=== PATIENT | female | born 1945 | race Caucasian/White ===

== ENCOUNTER 2019-11-26 12:49 | Emergency (ER) | payer OTHER, MEDICAID ==
[~2019-11-26] VITALS: Ht 154.9 cm; Wt 48.1 kg
--- NOTE | 2019-11-26 12:53 | NUR ---
Placed in room 6 . Placed on property assessment monitor, blood pressure machine and pulse oximeter. To gown for exam. Side rails up. Report given to BIANCA Amin.
[2019-11-26 12:54] VITALS: BP_SYST 171
--- NOTE | 2019-11-26 12:57 | NUR ---
ER at bedside examining patient.
[2019-11-26] MEDS ORDERED: ALPRAZolam 0.25 MG TABLET PO ONE (13:00)
--- NOTE | 2019-11-26 13:13 | NUR ---
MEDICATED PT WITH 1 MG TABLET XANAX ORDERED.
[2019-11-26 14:46] VITALS: BP_SYST 135
--- NOTE | 2019-11-26 14:46 | NUR ---
Patient given written and verbal discharge instructions and verbalizes understanding. ER MD discussed with patient the results and treatment provided. Patient in stable condition. ID arm band removed. IV catheter removed intact and dressing applied, no active bleeding. Rx of xanax given. Patient educated on pain management and to follow up with PMD. Pain Scale 0/10. Opportunity for questions provided and answered. Medication side effect fact sheet provided.
--- NOTE | 2019-11-26 15:00 | NUR ---
Pt requested taxi home stated she would be able to pay with her own money. When taxi arrived nurse was unable to locate patient for taxi ride home.
== END 2019-11-26 14:46 | disposition home or self-care (01) ==
LOC: SED 12:49
DX: F13.239 Sedative, hypnotic or anxiolytic dependence with withdrawal, unspecified (principal)
CPT/HCPCS: 99283

== ENCOUNTER 2021-05-27 15:22 | Inpatient (IN) | payer OTHER, MEDICAID ==
[~2021-05-27] VITALS: Ht 152.4 cm; Wt 56.2 kg
[2021-05-27 15:33] VITALS: BP_SYST 189
--- NOTE | 2021-05-27 15:33 | NUR ---
Patient to ER bed 1 to gown for evaluation. Side rails up. Report given to [place].
--- NOTE | 2021-05-27 15:40 | NUR ---
ER at bedside examining patient.
[2021-05-27] MEDS ORDERED: IPRATROPIUM/ALBUTEROL SULFATE 3 ML AMPUL.NEB (DUONEB) INH ONE (15:45)
--- NOTE | 2021-05-27 15:45 | NUR ---
pt to bed 1 coming from home via w/c with daughter. pt c/o sob vomiting and diarrhea x2 this morning, as well as congestion for the past 2 days. pt Aox4 verbaly responsive. v/s bp noted at 181/86 and hr 105 other vs stable. skin intact. nka. hx of multiplemyeloma, htn, dm2, anemia, depression , anxiety. bed at lowest position saftey checks done
--- NOTE | 2021-05-27 15:50 | NUR ---
# 20 gauge angiocath placed to left hand. Use of asceptic technique. Opsite placed over site. Blood return noted. Blood for lab drawn from site. Flushed with 10 cc of normal saline. No evidence of infiltration noted. Patient tolerated well.
--- NOTE | 2021-05-27 15:54 | NUR ---
rt at bed side providing bx tx
--- NOTE | 2021-05-27 16:12 | NUR ---
Chest X-ray being done at bedside.
[2021-05-27] MEDS ORDERED: cefTRIAXone 1 GM in D5W 50 ML IV ONE (16:30)
[2021-05-27] MEDS ORDERED: DOXYCYCLINE HYCLATE 100 MG in D5W 100 ML IV ONE (16:30)
--- NOTE | 2021-05-27 16:38 | NUR ---
O2 at 89% RA. Placed pt on NC runing at 6L. O2 saturation now at 95%. HR at 125, Dr. Mathur made aware.
--- NOTE | 2021-05-27 16:57 | NUR ---
Urine specimen collected and sent to lab.
[2021-05-27] MEDS ORDERED: NACL 0.9% 2,000 ML IV ONE (17:00)
[2021-05-27 17:10] LABS: BILIRUBIN,URINE NEGATIVE (NEGATIVE); BLOOD, URINE NEGATIVE (NEGATIVE); CLARITY/URINE CLEAR (CLEAR); COLOR,URINE YELLOW (YELLOW); GLUCOSE,URINE NEGATIVE (NEGATIVE); KETONES,URINE NEGATIVE (NEGATIVE); LEUKOCYTE ESTERASE ,URINE TRACE (NEGATIVE); NITRITE, URINE NEGATIVE (NEGATIVE); PH,URINE 6.5 (5.0-8.0); PROTEIN URINE NEGATIVE (NEGATIVE); UROBILINOGEN,URINE 0.2 (0.2-1.0)
[2021-05-27 17:15] LABS: RBC,URINE 0-3 /HPF (0-3)
[2021-05-27 17:16] LABS: BACTERIA,URINE FEW /HPF (None Seen); MUCUS,URINE 1+ /LPF (None Seen)
--- NOTE | 2021-05-27 17:16 | NUR ---
Called lab to draw blood for pt due to it being almost two hours already. An IV was placed but not able to draw blood. radio/tv technician made aware and they stated they will get here when they can.
[2021-05-27] MEDS ORDERED: ACETAMINOPHEN 500 MG TABLET PO ONE (17:30)
--- NOTE | 2021-05-27 17:32 | NUR ---
store facility technician at beside drawing blood.
[2021-05-27] MEDS ORDERED: cefTRIAXone 1 GM VIAL ONE (17:35)
[2021-05-27] MEDS ORDERED: DOXYCYCLINE HYCLATE 100 MG VIAL IV ONE (17:36)
[2021-05-27] MEDS ORDERED: ASPIRIN 325 MG TABLET PO ONE (18:30)
[2021-05-27 18:33] LABS: ANION GAP 9 (5-15); CALCIUM 8.9 mg/dL (8.4-11.0); CHLORIDE 105 mmol/L (98-107); GLUCOSE 122 mg/dL (70-99); SODIUM SERUM 139 mmol/L (136-145); UREA NITROGEN, BLOOD 16 mg/dL (8-21)
[2021-05-27 18:46] LABS: ALANINE AMINOTRANSFERASE 19 U/L (12-78); ALBUMIN 3.4 g/dL (3.4-4.8); ASPARTATE AMINOTRANSFERASE 26 U/L (10-37); TOTAL BILIRUBIN 0.1 mg/dL (0.0-1.0)
[2021-05-27 19:06] LABS: BASOPHILS % (AUTO) 0.2 % (0.0-2.0); EOSINOPHILS # (AUTO) 0.2 K/uL (0.0-0.4); EOSINOPHILS % (AUTO) 3.1 % (0.0-4.0); HEMATOCRIT 32.2 % (36-48); LYMPHOCYTES # (AUTO) 1.3 K/uL (1.0-5.5); LYMPHOCYTES % (AUTO) 25.6 % (20.5-51.5); MEAN CORPUSCULAR HEMOGLOBIN 26 pg (27-31); MEAN CORPUSCULAR HGB CONC 31 % (32-36); MEAN CORPUSCULAR VOLUME 83 fL (79.0-98.0); MONOCYTES # (AUTO) 0.4 K/uL (0.0-1.0); MONOCYTES % (AUTO) 7.2 % (1.7-9.3); NEUTROPHILS # (AUTO) 3.2 K/uL (1.8-7.7); NEUTROPHILS % (AUTO) 63.9 % (40.0-70.0); PLATELET COUNT (AUTO) 190 K/uL (130-430); RED BLOOD CELL COUNT(AUTO) 3.89 MIL/uL (4.2-6.2); RED CELL DISTRIBUTION WIDTH 14.6 % (9.0-15.0)
--- NOTE | 2021-05-27 19:19 | NUR ---
RECIEVED CHANGE OF SHIFT REPORT FROM BIANCA PETERS. PT PENDING ADMISSION AT THI TIME. PT IN BED RESTING WITH EYES OPEN, VITALK SIGNS STABLE. WILL MONITOR NEEDED
[2021-05-27] MEDS ORDERED: LORazepam 1 MG TABLET PO ONE (20:30)
--- NOTE | 2021-05-27 20:54 | NUR ---
SKIN ASSESSMENT COMPLETE, SKIN INTACT. PT PENDING ADMISSION AT THIS TIME. WILL MONITOR NEEDED
--- NOTE | 2021-05-27 21:28 | NUR ---
PT PROVIDED WITH BEDPAN FOR URINATION, PT REPOSITONED AFTERWARDS FOR POSITION OF COMFORT. WILL MONITOR CLOSELY
--- NOTE | 2021-05-27 23:27 | NUR ---
Admit bed requested Patient will be admitted to care of Dr.A WAITE. Admitted to TELE unit. Diagnosis PNA,RESP FAILURE Inpatient (Yes or No) YES Observation (Yes or No) NO Orientation concerns or request close to nursing station (Yes or No) NO Covid Status NEGATIVE On vent or bipap NO Isolation requirements NO Needs a sitter NO From Home (Yes or if No enter name of facility) YES Requires Dialysis (Yes or No) NO Med Rec Completed (Yes of No) YES Addendum: 05/27/21 at 2329 by SDEDPR MED REC PENDING
--- NOTE | 2021-05-27 23:40 | NUR ---
PT GOING TO 122 B
[2021-05-27] MEDS: ALBUTEROL SULFATE 0.083% 2.5 MG/3 ML VIAL.NEB INH SCH (23:45)
[2021-05-27] MEDS ORDERED: NALOXONE HCL 0.4 MG/ML AMP (NARCAN) IVP PRN ×2 (23:45)
[2021-05-27] MEDS ORDERED: HYDROcodone/ACETAMIN 5-325 MG TAB (NORCO/ VICODIN) PO PRN (23:45)
[2021-05-27] MEDS ORDERED: LORazepam 2 MG/ML VIAL IVP PRN (23:45)
[2021-05-27] MEDS: IPRATROPIUM BROM 0.5 MG/2.5 ML VIAL.NEB (ATROVENT) INH SCH (23:46)
[2021-05-27] MEDS ORDERED: NORMAL SALINE 5 ML DISP.SYRIN IVF SCH (23:47)
--- NOTE | 2021-05-28 00:09 | NUR ---
PT IN BED RESTING EASILY AROUSABLE WITH VERBAL STIMULI. PT VITAL SIGNS STABLE. PT SKIN ASSESSMENT COMPLETE. SKIN INTACT, PENDING ADMISSION. CARROL MONITOR NEEDED.
--- NOTE | 2021-05-28 01:28 | NUR ---
ADMISSION NOTE Received patient from ER via delisa, received report from BIANCA Wade. Patient admitted with diagnosis of PNA, Respiratory failure. Patient oriented to hospital routine, call light, toileting and safety-patient verbalized understanding.
--- NOTE | 2021-05-28 01:35 | NUR ---
Initial RN notes Pt AAOx3, VSS, O2 sat 100% on 6L. Titrate O2 to 4L No s/s respiratory distress noted. Pt denies any pain. IV saline lock L. hand 20G clear and patent. Oriented pt to room/call light use, pt verbalized understanding. Bed low,locked, siderails up x3. To monitor.
[2021-05-28 01:45] VITALS: BP_SYST 136
--- NOTE | 2021-05-28 01:45 | NUR ---
BEDSIDE REPORT PROVIDED TO BIANCA FELTON FOR PATIENT CARE. PT ADMITTED TO ROOM 122B ACCOMPANIED BY RN VIA FANNY IN STABLE CONDITION WITH ALL BELONINGS ON OXYGEN NASAL CANNULA. ALL QUESTIONS ANSWERED.
--- NOTE | 2021-05-28 02:52 | NUR ---
CONSULTATION PAGED REASON FOR CONSULTATION: pneumonia WAS CONSULT CALLED? Y PERSON WHO WAS NOTIFIED: Steven CONSULTING PHYSICIAN: Dr. Howard REQUESTING PHYSICIAN: Frankie Krishnan
--- NOTE | 2021-05-28 03:04 | NUR ---
CONSULTATION PAGED REASON FOR CONSULTATION: PNA WAS CONSULT CALLED? Y PERSON WHO WAS NOTIFIED: Natalie CONSULTING PHYSICIAN: Anshu Hernandez REQUESTING PHYSICIAN: Frankie Krishnan
[2021-05-28] MEDS: ALBUTEROL SULFATE 0.083% 2.5 MG/3 ML VIAL.NEB INH SCH ×6 (03:07→23:00)
[2021-05-28] MEDS: IPRATROPIUM BROM 0.5 MG/2.5 ML VIAL.NEB (ATROVENT) INH SCH ×6 (03:07→23:00)
--- NOTE | 2021-05-28 03:42 | NUR ---
Breathing Treatment Per RT pt started wheezing after breathing treatment. Pt O2 titrated down to 2L per RT O2 sat 97%.
[2021-05-28 04:03] VITALS: BP_SYST 134
[2021-05-28] MEDS: ACETAMINOPHEN 325 MG TABLET PO PRN ×3 (04:36→21:17)
--- NOTE | 2021-05-28 04:36 | NUR ---
Headache Pt c/o headache after coughing. O2 2L on via NC. Medicated with Tylenol 650mg PO as needed. Call light within reach. Bed low, locked, siderails up x3. To monitor.
[2021-05-28] MEDS: NORMAL SALINE 5 ML DISP.SYRIN IVF SCH ×3 (05:06→20:13)
--- NOTE | 2021-05-28 06:20 | NUR ---
Closing notes Pt awake, no s/s distress noted. Pt states headache is better. Call light within reach. Bed low, locked, siderails up x3. To endorse to AM nurse.
[2021-05-28 07:32] LABS: ANION GAP 1 (5-15); C-REACTIVE PROTEIN QUANT 2.2 mg/dL (0-0.5); CALCIUM 7.8 mg/dL (8.4-11.0); CHLORIDE 111 mmol/L (98-107); CREATININE 0.67 mg/dL (0.55-1.30); GLUCOSE 111 mg/dL (70-99); PHOSPHORUS 2.9 mg/dL (2.7-4.5); POTASSIUM 3.3 mmol/L (3.5-5.1); SODIUM SERUM 141 mmol/L (136-145); UREA NITROGEN, BLOOD 11 mg/dL (8-21)
[2021-05-28 07:43] LABS: BASOPHILS % (AUTO) 0.4 % (0.0-2.0); EOSINOPHILS # (AUTO) 0.1 K/uL (0.0-0.4); EOSINOPHILS % (AUTO) 3.2 % (0.0-4.0); HEMATOCRIT 28.1 % (36-48); HEMOGLOBIN 9.1 g/dL (12.0-16.0); LYMPHOCYTES # (AUTO) 1.1 K/uL (1.0-5.5); LYMPHOCYTES % (AUTO) 24.9 % (20.5-51.5); MEAN CORPUSCULAR HEMOGLOBIN 26 pg (27-31); MEAN CORPUSCULAR HGB CONC 33 % (32-36); MEAN CORPUSCULAR VOLUME 81 fL (79.0-98.0); MONOCYTES # (AUTO) 0.4 K/uL (0.0-1.0); MONOCYTES % (AUTO) 9.3 % (1.7-9.3); NEUTROPHILS # (AUTO) 2.7 K/uL (1.8-7.7); NEUTROPHILS % (AUTO) 62.2 % (40.0-70.0); PLATELET COUNT (AUTO) 170 K/uL (130-430); RED BLOOD CELL COUNT(AUTO) 3.47 MIL/uL (4.2-6.2); WHITE BLOOD COUNT (AUTO) 4.3 K/uL (4.8-10.8)
[2021-05-28] MEDS: DOXYCYCLINE HYCLATE 100 MG in D5W 100 ML IV SCH ×2 (08:20→20:07)
--- NOTE | 2021-05-28 09:00 | NUR ---
patient refuse ativan, called pharmacy because i am unable to return back the ativan, talked to Deja and she did the inventory. ( pharmacy did inventory)
[2021-05-28] MEDS: cefTRIAXone 1 GM IVPB PREMIX 50 ML IV SCH (09:28)
[2021-05-28] MEDS ORDERED: ALPRAZolam 0.25 MG TABLET PO ONE (09:30)
[2021-05-28] MEDS ORDERED: POTASSIUM CHLORIDE 20 MEQ TAB.PRT.SR PO ONE (11:15)
[2021-05-28 11:22] VITALS: BP_SYST 119
[2021-05-28 13:45] LABS: ERYTHROCYTE SEDIMENTATION RATE 40 MM/HR (0-20)
[2021-05-28 15:25] VITALS: BP_SYST 131
[2021-05-28 19:40] VITALS: BP_SYST 143
[2021-05-28] MEDS: ALPRAZolam 0.25 MG TABLET PO SCH (20:06)
[2021-05-29 00:05] VITALS: BP_SYST 129
[2021-05-29] MEDS: ALBUTEROL SULFATE 0.083% 2.5 MG/3 ML VIAL.NEB INH SCH ×6 (04:48→23:00)
[2021-05-29] MEDS: IPRATROPIUM BROM 0.5 MG/2.5 ML VIAL.NEB (ATROVENT) INH SCH ×6 (04:49→23:00)
--- NOTE | 2021-05-29 05:25 | NUR ---
IV RE-INSERTION: Complaining of pain to L. hand IV site. DC'd IV, catheter tip intact. Restarted on L. AC 22G, good blood return. Successful after 2 attempts. Pt tolerated well. Will observe for any signs of infiltration.
[2021-05-29] MEDS: NORMAL SALINE 5 ML DISP.SYRIN IVF SCH ×3 (05:58→20:37)
[2021-05-29 06:49] LABS: BASOPHILS % (AUTO) 0.4 % (0.0-2.0); EOSINOPHILS # (AUTO) 0.2 K/uL (0.0-0.4); EOSINOPHILS % (AUTO) 3.8 % (0.0-4.0); HEMATOCRIT 30.1 % (36-48); HEMOGLOBIN 9.7 g/dL (12.0-16.0); LYMPHOCYTES % (AUTO) 22.9 % (20.5-51.5); MEAN CORPUSCULAR HEMOGLOBIN 26 pg (27-31); MEAN CORPUSCULAR HGB CONC 32 % (32-36); MEAN CORPUSCULAR VOLUME 81 fL (79.0-98.0); MONOCYTES # (AUTO) 0.4 K/uL (0.0-1.0); MONOCYTES % (AUTO) 9.4 % (1.7-9.3); NEUTROPHILS # (AUTO) 2.9 K/uL (1.8-7.7); NEUTROPHILS % (AUTO) 63.5 % (40.0-70.0); PLATELET COUNT (AUTO) 200 K/uL (130-430); RED BLOOD CELL COUNT(AUTO) 3.72 MIL/uL (4.2-6.2); RED CELL DISTRIBUTION WIDTH 14.6 % (9.0-15.0); WHITE BLOOD COUNT (AUTO) 4.6 K/uL (4.8-10.8)
--- NOTE | 2021-05-29 06:56 | NUR ---
Closing notes Pt awake, no s/s distress noted. Pt walked to bathroom and had a BM. Call light within reach. Bed low, locked, siderails up x3. To endorse to AM nurse.
[2021-05-29 07:57] LABS: ALANINE AMINOTRANSFERASE 15 U/L (12-78); ALBUMIN 3.1 g/dL (3.4-4.8); ANION GAP 5 (5-15); ASPARTATE AMINOTRANSFERASE 17 U/L (10-37); CALCIUM 8.8 mg/dL (8.4-11.0); CHLORIDE 106 mmol/L (98-107); CREATININE 0.68 mg/dL (0.55-1.30); GLUCOSE 124 mg/dL (70-99); POTASSIUM 4.4 mmol/L (3.5-5.1); SODIUM SERUM 138 mmol/L (136-145); TOTAL BILIRUBIN 0.1 mg/dL (0.0-1.0); UREA NITROGEN, BLOOD 14 mg/dL (8-21)
[2021-05-29 08:23] LABS: ERYTHROCYTE SEDIMENTATION RATE 46 MM/HR (0-20)
[2021-05-29] MEDS: ALPRAZolam 0.25 MG TABLET PO SCH ×2 (08:46→20:37)
[2021-05-29] MEDS: DOXYCYCLINE HYCLATE 100 MG in D5W 100 ML IV SCH ×2 (08:47→20:36)
--- NOTE | 2021-05-29 08:48 | NUR ---
Scheduled IV abx and po medications given per order. Patient stable at this time.
[2021-05-29 08:50] VITALS: BP_SYST 134
--- NOTE | 2021-05-29 09:30 | NUR ---
Patient ambulating with walker in hallway; IMAN Li supervised.
[2021-05-29 10:00] LABS: C-REACTIVE PROTEIN QUANT 1.8 mg/dL (0-0.5)
--- NOTE | 2021-05-29 10:11 | NUR ---
PATIENT IS SAFE TO AMBULATE, USING THE FWW, WITH NURSING SUPERVISION. SHE DOES NOT NEED FURTHER PHYSICAL THERAPY.
[2021-05-29] MEDS: cefTRIAXone 1 GM IVPB PREMIX 50 ML IV SCH (10:29)
[2021-05-29] MEDS: ACETAMINOPHEN 325 MG TABLET PO PRN (10:30)
--- NOTE | 2021-05-29 10:30 | NUR ---
Scheduled IV abx given per order. Patient medicated for 3/10 headache as well. Patient stable at this time.
--- NOTE | 2021-05-29 11:30 | NUR ---
Patient stable; resting comfortably in bed with no complaint of headache at this time.
[2021-05-29 12:35] VITALS: BP_SYST 142
--- NOTE | 2021-05-29 12:40 | NUR ---
Patient sitting in bed; eating lunch. No distress noted and no complaint of pain at this time.
--- NOTE | 2021-05-29 13:35 | NUR ---
Patient stable at this time with no complaint of headache pain or discomfort.
[2021-05-29] MEDS: HYDROcodone/ACETAMIN 10-325 MG TAB PO PRN (16:42)
--- NOTE | 2021-05-29 16:43 | NUR ---
Patient medicated for 10/10 abdominal pain. Patient stable at this time.
[2021-05-29 16:44] VITALS: BP_SYST 157
--- NOTE | 2021-05-29 17:50 | NUR ---
Patient ambulated to bathroom and back to bed. Denies any pain at this time. Patient stable.
--- NOTE | 2021-05-29 18:15 | NUR ---
Patient stable throughout shift.
[2021-05-29 20:00] VITALS: BP_SYST 143
--- NOTE | 2021-05-29 20:10 | NUR ---
PM ASSESSMENT -pt is a/ox4, Tamazight speaking. pt is resting in bed comfortably. Pt denies any chest pain,sob,or any acute distress. IV site patent,flushed well,no s/s any infiltration noted. Discussed poc,all safety measures, pt verbalized understanding. All safety measures in place. Bed alarm in place. Side rails x3,call light w/in reach. Continue to monitor pt.
--- NOTE | 2021-05-29 20:37 | NUR ---
ROUNDS; -Gave xanax po upon pt's request for sleep. No s/s any pain,sob,or any acute distress noted. Pt has 2L n/c oxy continously g5plb=07%. All safety measures in place. Bed alarm in place. Side rails x3,call light w/in reach. Continue to monitor pt.
--- NOTE | 2021-05-29 22:25 | NUR ---
ROUNDS; -Pt is asleep. No s/s any pain,sob,or any acute distress noted. Pt has 2L n/c oxy continously [id number]=42%. All safety measures in place. Bed alarm in place. Side rails x3,call light w/in reach. Continue to monitor pt.
[2021-05-30 01:17] VITALS: BP_SYST 131
--- NOTE | 2021-05-30 01:45 | NUR ---
ROUNDS; -Pt is asleep. No s/s any pain,sob,or any acute distress noted. Pt has 2L n/c oxy continously n1goq=06%. All safety measures in place. Bed alarm in place. Side rails x3,call light w/in reach. Continue to monitor pt.
[2021-05-30] MEDS: IPRATROPIUM BROM 0.5 MG/2.5 ML VIAL.NEB (ATROVENT) INH SCH ×6 (03:00→23:05)
[2021-05-30] MEDS: ALBUTEROL SULFATE 0.083% 2.5 MG/3 ML VIAL.NEB INH SCH ×6 (03:00→23:04)
--- NOTE | 2021-05-30 04:25 | NUR ---
ROUNDS; -Pt is asleep. No s/s any pain,sob,or any acute distress noted. All safety measures in place. Bed alarm in place. Side rails x3,call light w/in reach. Continue to monitor pt.
[2021-05-30] MEDS: NORMAL SALINE 5 ML DISP.SYRIN IVF SCH ×3 (06:19→20:23)
--- NOTE | 2021-05-30 06:19 | NUR ---
ROUNDS; -Pt awoke upon making rounds. Phlebomist is at bedside drawing am labs. Pt denies any pain,sob,or any acute distress. All safety measures in place. Bed alarm in place. Side rails x3,call light w/in reach. Continue to monitor pt.
--- NOTE | 2021-05-30 06:44 | NUR ---
CLOSING NOTES; -pt is resting in bed comfortably. Pt denies any chest pain,sob,or any acute distress. IV site patent drsg cdi. Pt has 2L n/c oxy continously. Pt's condition stable entire shift. All safety measures in place. Bed alarm in place. Side rails x3,call light w/in reach. Will endorse to next nurse to cont care.
[2021-05-30 07:03] LABS: ANION GAP 7 (5-15); CALCIUM 8.6 mg/dL (8.4-11.0); CHLORIDE 105 mmol/L (98-107); CREATININE 0.72 mg/dL (0.55-1.30); GLUCOSE 103 mg/dL (70-99); POTASSIUM 4.1 mmol/L (3.5-5.1); SODIUM SERUM 138 mmol/L (136-145); UREA NITROGEN, BLOOD 25 mg/dL (8-21)
[2021-05-30 07:08] LABS: BASOPHILS % (AUTO) 0.4 % (0.0-2.0); EOSINOPHILS # (AUTO) 0.2 K/uL (0.0-0.4); EOSINOPHILS % (AUTO) 3.2 % (0.0-4.0); HEMATOCRIT 28.9 % (36-48); HEMOGLOBIN 9.4 g/dL (12.0-16.0); LYMPHOCYTES # (AUTO) 1.5 K/uL (1.0-5.5); LYMPHOCYTES % (AUTO) 27.2 % (20.5-51.5); MEAN CORPUSCULAR HEMOGLOBIN 26 pg (27-31); MEAN CORPUSCULAR HGB CONC 32 % (32-36); MEAN CORPUSCULAR VOLUME 82 fL (79.0-98.0); MONOCYTES # (AUTO) 0.6 K/uL (0.0-1.0); MONOCYTES % (AUTO) 10.6 % (1.7-9.3); NEUTROPHILS # (AUTO) 3.2 K/uL (1.8-7.7); NEUTROPHILS % (AUTO) 58.6 % (40.0-70.0); PLATELET COUNT (AUTO) 215 K/uL (130-430); RED BLOOD CELL COUNT(AUTO) 3.55 MIL/uL (4.2-6.2); RED CELL DISTRIBUTION WIDTH 14.7 % (9.0-15.0); WHITE BLOOD COUNT (AUTO) 5.5 K/uL (4.8-10.8)
[2021-05-30 07:25] LABS: C-REACTIVE PROTEIN QUANT 0.7 mg/dL (0-0.5)
[2021-05-30 08:10] VITALS: BP_SYST 128
--- NOTE | 2021-05-30 08:10 | NUR ---
Opening Notes Patient is awake, laying in bed. No apparent distress noted, patient denies pain. SPO2 and BP as charted. Call light within reach. Safety and fall precautions in place.
[2021-05-30] MEDS: ALPRAZolam 0.25 MG TABLET PO SCH ×2 (09:16→20:22)
[2021-05-30] MEDS: DOXYCYCLINE HYCLATE 100 MG in D5W 100 ML IV SCH ×2 (09:19→20:22)
[2021-05-30] MEDS: cefTRIAXone 1 GM IVPB PREMIX 50 ML IV SCH (09:20)
[2021-05-30 09:22] LABS: ERYTHROCYTE SEDIMENTATION RATE 44 MM/HR (0-20)
[2021-05-30] MEDS: ONDANSETRON HCL 4 MG/2 ML VIAL IVP PRN (11:01)
[2021-05-30 13:01] VITALS: BP_SYST 128
--- NOTE | 2021-05-30 16:45 | NUR ---
Note Patient is awake sitting up in bed watching television. No apparent distress noted. All needs met. Safety and fall precautions in place.
[2021-05-30 16:47] VITALS: BP_SYST 123
--- NOTE | 2021-05-30 17:00 | NUR ---
CM: Home Health: faxed the referral to [facility] fax #[phone], tel [phone], attn Clement [facility] O[facility]: faxed the referral and respiatory order form to [facility], fax # [phone], tel # [phone]. S/W Beto, he will run the insurance eligibility , will call back tomorrow for further documentation needed. Addendum: 05/30/21 at 1732 by Denzel Valenzuela RN Per Beto, no ABG test or PT/Oxygen test needed dt COVID exception for home oxygen set up.
--- NOTE | 2021-05-30 19:25 | NUR ---
Closing Notes Patient is stable. Safety an fall precautions in place. Endorsed care to night supervisor RN.
[2021-05-30 20:00] VITALS: BP_SYST 109
--- NOTE | 2021-05-30 20:00 | NUR ---
PM ASSESSMENT -pt is a/ox4, Thai speaking, little [place]inean speaking. pt is resting in bed comfortably. Pt denies any chest pain,sob,or any acute distress. IV site patent,flushed well,no s/s any infiltration noted. Discussed poc,all safety measures, pt verbalized understanding. All safety measures in place. Bed alarm in place. Side rails x3,call light w/in reach. Continue to monitor pt.
[2021-05-30] MEDS: HYDROcodone/ACETAMIN 10-325 MG TAB PO PRN (22:02)
--- NOTE | 2021-05-30 22:02 | NUR ---
ROUNDS; -Pt is c/o generalized pain, gave [place] 1 tab po for pain. Pt has 2L n/c oxy continously. All safety measures in place. Bed alarm in place. Side rails x3,call light w/in reach. Will reassess pain level w/in an hour and continue to monitor pt.
[2021-05-31] VITALS (7 sets, daily range): BP systolic 109–134
--- NOTE | 2021-05-31 00:02 | NUR ---
ROUNDS; -Pt is asleep. NO s/s any acute distress noted. All safety measures in place. Bed alarm in place. Side rails x3,call light w/in reach. Will reassess pain level w/in an hour and continue to monitor pt.
--- NOTE | 2021-05-31 02:01 | NUR ---
ROUNDS; -Pt is asleep. NO s/s any acute distress noted. Pt's condition stable. All safety measures in place. Bed alarm in place. Side rails x3,call light w/in reach. Will reassess pain level w/in an hour and continue to monitor pt.
--- NOTE | 2021-05-31 03:45 | NUR ---
ROUNDS; -Pt is still asleep. NO s/s any acute distress noted. All safety measures in place. Bed alarm in place. Side rails x3,call light w/in reach. Will reassess pain level w/in an hour and continue to monitor pt.
[2021-05-31] MEDS: IPRATROPIUM BROM 0.5 MG/2.5 ML VIAL.NEB (ATROVENT) INH SCH ×4 (04:05→15:28)
[2021-05-31] MEDS: ALBUTEROL SULFATE 0.083% 2.5 MG/3 ML VIAL.NEB INH SCH ×4 (04:05→15:28)
[2021-05-31] MEDS: NORMAL SALINE 5 ML DISP.SYRIN IVF SCH (05:18)
[2021-05-31 06:38] LABS: BASOPHILS % (AUTO) 0.4 % (0.0-2.0); EOSINOPHILS # (AUTO) 0.1 K/uL (0.0-0.4); EOSINOPHILS % (AUTO) 2.3 % (0.0-4.0); HEMATOCRIT 27.8 % (36-48); LYMPHOCYTES # (AUTO) 1.5 K/uL (1.0-5.5); LYMPHOCYTES % (AUTO) 32.8 % (20.5-51.5); MEAN CORPUSCULAR HEMOGLOBIN 27 pg (27-31); MEAN CORPUSCULAR HGB CONC 32 % (32-36); MEAN CORPUSCULAR VOLUME 82 fL (79.0-98.0); MONOCYTES # (AUTO) 0.5 K/uL (0.0-1.0); NEUTROPHILS # (AUTO) 2.5 K/uL (1.8-7.7); NEUTROPHILS % (AUTO) 54.5 % (40.0-70.0); PLATELET COUNT (AUTO) 213 K/uL (130-430); RED BLOOD CELL COUNT(AUTO) 3.39 MIL/uL (4.2-6.2); RED CELL DISTRIBUTION WIDTH 15.1 % (9.0-15.0); WHITE BLOOD COUNT (AUTO) 4.6 K/uL (4.8-10.8)
--- NOTE | 2021-05-31 06:49 | NUR ---
CLOSING NOTES; -Pt is still asleep. NO s/s any acute distress noted. IV sites patent drsg cdi of left hand and left a/c. All safety measures in place. Bed alarm in place. Side rails x3,call light w/in reach. Will endorse to next nurse to cont care.
[2021-05-31 06:50] LABS: ANION GAP 6 (5-15); CALCIUM 8.5 mg/dL (8.4-11.0); CHLORIDE 106 mmol/L (98-107); GLUCOSE 113 mg/dL (70-99); POTASSIUM 3.8 mmol/L (3.5-5.1); SODIUM SERUM 139 mmol/L (136-145); UREA NITROGEN, BLOOD 20 mg/dL (8-21)
[2021-05-31 07:35] LABS: C-REACTIVE PROTEIN QUANT 0.6 mg/dL (0-0.5)
--- NOTE | 2021-05-31 08:10 | NUR ---
Opening Note Patient laying in bed awake. No apparent distress noted. Vitals as charted. Call light within reach. Safety and fall precautions in place. Provided patient with small waste bags for bedside as requested by patient.
[2021-05-31 08:28] LABS: ERYTHROCYTE SEDIMENTATION RATE 43 MM/HR (0-20)
[2021-05-31] MEDS: ALPRAZolam 0.25 MG TABLET PO SCH ×2 (08:49→21:01)
[2021-05-31] MEDS: DOXYCYCLINE HYCLATE 100 MG in D5W 100 ML IV SCH (08:50)
[2021-05-31] MEDS: cefTRIAXone 1 GM IVPB PREMIX 50 ML IV SCH (09:02)
[2021-05-31] MEDS: ONDANSETRON HCL 4 MG/2 ML VIAL IVP PRN (11:03)
--- NOTE | 2021-05-31 12:17 | NUR ---
Note Spoke with Geraldine, patient's niece. Updated on discharge status.
--- NOTE | 2021-05-31 14:02 | NUR ---
CM: SPOKE WITH GUILLE THIS MORNING, HOME O2 WILL BE DELIVERED TODAY, EST GIVEN 1400P, GUILLE STATES I WILL LET STAFF KNOW. Addendum: 05/31/21 at 1413 by Betsy Alejandre RN PT REMAINS HERE AT THE HOSPITAL WITH C/O N/V COUPLED WITH DIARRHEA, PT ALSO RECIVING IV ANTIBIOTIC, CALL PLACED TO DR. LOPEZ, MESSAGE LEFT, AWAITING CALL BACK.
--- NOTE | 2021-05-31 16:58 | NUR ---
CM: HOME O2 ARRANGED WITH ANITRA , HAS BEEV DELIVERED TO NURSES STATION.
--- NOTE | 2021-05-31 18:53 | NUR ---
Closing Notes Patient laying in bed watching television. No apparent distress noted. Patient denies pain. Call light within reach. Safety and fall precautions in place. All needs met. Will endorse care to oil burner journeyman RN.
[2021-05-31] MEDS: HYDROcodone/ACETAMIN 10-325 MG TAB PO PRN (19:35)
--- NOTE | 2021-05-31 21:01 | NUR ---
DISCHARGE HOME -Pt is not in any pain,sob,or any acute distress. Removed all IV site of left hand and left f/a, no active bleeding noted, applied gauzed and taped over them. Gave Xanax 1mg po prior discharge home with Nephew,assisting with w/c to private car. Instruction package given and all belongings taken by patient. Pt has oxygen tank delivered at bedside taken home with 2L nc oxy. VSS. pt's condition stable.
--- NOTE | 2021-06-01 15:45 | NUR ---
Discharge Planning: DCP followed up with [facility] fax #[phone], tel [phone], attn Clement patient was accepted and home O2 delivered.
== END 2021-05-31 21:00 | disposition home health service (06) | DRG 871 ==
LOC: SED 15:22 → STU 19:20 → SMU 05-28 17:56
PROVIDERS: ADMIT Preventive Medicine Preventive Medicine/Occupational Environmental Medicine; ATTEND Preventive Medicine Preventive Medicine/Occupational Environmental Medicine
DX: A41.9 Sepsis, unspecified organism (principal); J18.9 Pneumonia, unspecified organism; J96.01 Acute respiratory failure with hypoxia; C90.00 Multiple myeloma not having achieved remission; E87.6 Hypokalemia; D64.9 Anemia, unspecified; Z20.822 Contact with and (suspected) exposure to COVID-19; I10 Essential (primary) hypertension; E88.09 Other disorders of plasma-protein metabolism, not elsewhere classified; E11.65 Type 2 diabetes mellitus with hyperglycemia; R53.81 Other malaise
CPT/HCPCS: 36415; 71045; 80048; 80053; 81000; 83605; 83735; 83880; 84100; 84484; 85025; 85651-TC; 86140; 87040; 94640; 94760; 96361; 96374; 97116-GP; 97530-GP; 99291; G0378; J0696; J2060; J2405; J3490; J7060; J7613

== ENCOUNTER 2021-10-28 13:23 | Inpatient (IN) | payer OTHER, MEDICAID ==
[~2021-10-28] VITALS: Ht 152.4 cm; Wt 59.0 kg
[2021-10-28 13:28] VITALS: BP_SYST 133
--- NOTE | 2021-10-28 13:33 | NUR ---
BIBS WITH C/C OF CHEST PAIN AND SOB X 1 WEEK, WITH WORSENING SOB TODAY. PT UGANDAN SPEAKING. PT REPORTS BEING DIZZY DURING THE WEEK AND HAD A COUPLE FALLS THIS WEEK. HX OF HTN, ANXIETY, DEPRESSION. REPORTS GENERALIZED WEAKNESS. 12L EKG DONE WITH SINUS TACHYCARDIA AT 106. PLACED IN BED 4.
--- NOTE | 2021-10-28 13:39 | NUR ---
PT MOVED TO BED 3, REPORT GIVEN TO BIANCA SMALLS. DR. RING UPDATED ON STATUS.
[2021-10-28] MEDS ORDERED: ASPIRIN 81 MG TAB.CHEW PO ONE (13:45)
--- NOTE | 2021-10-28 13:45 | NUR ---
MD RING AT BEDSIDE FOR MSE
[2021-10-28 14:04] LABS: BASOPHILS # (AUTO) 0.1 K/uL (0.0-0.2); BASOPHILS % (AUTO) 1.4 % (0.0-2.0); EOSINOPHILS # (AUTO) 0.1 K/uL (0.0-0.4); EOSINOPHILS % (AUTO) 1.1 % (0.0-4.0); HEMATOCRIT 27.9 % (36-48); LYMPHOCYTES # (AUTO) 1.7 K/uL (1.0-5.5); LYMPHOCYTES % (AUTO) 33.1 % (20.5-51.5); MEAN CORPUSCULAR VOLUME 74 fL (79.0-98.0); MONOCYTES # (AUTO) 0.4 K/uL (0.0-1.0); MONOCYTES % (AUTO) 8.5 % (1.7-9.3); NEUTROPHILS # (AUTO) 2.9 K/uL (1.8-7.7); NEUTROPHILS % (AUTO) 55.9 % (40.0-70.0); PLATELET COUNT (AUTO) 223 K/uL (130-430); RED BLOOD CELL COUNT(AUTO) 3.77 MIL/uL (4.2-6.2); RED CELL DISTRIBUTION WIDTH 17.6 % (9.0-15.0); WHITE BLOOD COUNT (AUTO) 5.2 K/uL (4.8-10.8)
[2021-10-28 14:10] LABS: ANION GAP 8 (5-15); CALCIUM 8.4 mg/dL (8.4-11.0); CHLORIDE 105 mmol/L (98-107); CREATININE 0.82 mg/dL (0.55-1.30); GLUCOSE 106 mg/dL (70-99); POTASSIUM 4.1 mmol/L (3.5-5.1); UREA NITROGEN, BLOOD 15 mg/dL (8-21)
[2021-10-28 14:19] LABS: ALANINE AMINOTRANSFERASE 16 U/L (12-78); ALBUMIN 3.3 g/dL (3.4-4.8); ASPARTATE AMINOTRANSFERASE 23 U/L (10-37); TOTAL BILIRUBIN 0.3 mg/dL (0.0-1.0)
[2021-10-28] MEDS ORDERED: ONDANSETRON 4 MG ODT TAB PO ONE (15:15)
[2021-10-28] MEDS ORDERED: ACETAMINOPHEN 500 MG TABLET PO ONE (15:15)
[2021-10-28] MEDS ORDERED: NITROGLYCERIN 0.4 MG TAB.SUBL SL PRN (15:15)
--- NOTE | 2021-10-28 15:16 | NUR ---
Admit bed requested Patient will be admitted to care of . Admitted to TELEMETRY unit. Diagnosis CHEST PAIN Inpatient (Yes or No) YES Observation (Yes or No) NO Orientation concerns or request close to nursing station (Yes or No) NO Covid Status PENDING On vent or bipap NO Isolation requirements NO Needs a sitter NO From Home (Yes or if No enter name of facility) YES Requires Dialysis (Yes or No) NO Med Rec Completed (Yes of No) YES
[2021-10-28] MEDS ORDERED: ALPR1TAB2 PO (15:26)
--- NOTE | 2021-10-28 15:26 | NUR ---
COVID TEST OBTAINED AND LABELED SENT TO LAB
--- NOTE | 2021-10-28 17:00 | NUR ---
Patient will be admitted to care of DARRON VALENZUELA. Admitted to TELEMETRY unit. Will go to room 112B. Belongings list completed. Complete and up to date summary report printed. SBAR report to be given at bedside with opportunity for questions.
[2021-10-28 19:49] VITALS: BP_SYST 128
[2021-10-28] MEDS: ALPRAZolam 0.25 MG TABLET PO SCH (21:45)
[2021-10-28] MEDS: ACETAMINOPHEN 325 MG TABLET PO PRN (21:46)
[2021-10-28] MEDS: ENOXAPARIN SODIUM 40 MG/0.4 ML SYRINGE SUBCUT SCH (23:12)
[2021-10-29] VITALS: BP_SYST 137
--- NOTE | 2021-10-29 04:23 | NUR ---
CONSULT: CONSULT CALLED FOR DR. DAVIS I SPOKE TO JORGE OSORIO REASON FOR CONSULT: CHEST PAIN REQUESTING CONSULT: DR. STARKS WHARF TALLY CLERK PHONE NUMBER: [phone]
[2021-10-29] MEDS: ACETAMINOPHEN 325 MG TABLET PO PRN ×2 (06:24→13:24)
--- NOTE | 2021-10-29 07:25 | NUR ---
OPEN NOTE Patient is lying in bed comfortably. No signs of any chest pain, sob,or any acute distress noted. Left wrist IV patent and SL. No s/s any infiltration noted. Patient has bathroom privileges with assist and asked to please call us when she needs to go to restroom. All safety measures in place, side rails up bed locked in lowest position, call light within reach. All needs met at this time, will continue to monitor.
[2021-10-29 07:30] VITALS: BP_SYST 143
[2021-10-29 07:33] LABS: TOTAL IRON BIND. CAPACITY 343 ug/dL (250-450)
[2021-10-29] MEDS: ALPRAZolam 0.25 MG TABLET PO SCH ×2 (08:47→20:41)
[2021-10-29] MEDS: ASPIRIN 81 MG TAB.CHEW PO SCH (08:47)
[2021-10-29] MEDS ORDERED: ASPIRIN 81 MG TAB.CHEW PO SCH (09:00)
[2021-10-29] MEDS ORDERED: amLODIPine BESYLATE 5 MG TABLET PO ONE (10:45)
[2021-10-29] MEDS ORDERED: ATORVASTATIN 20 MG TABLET PO ONE (10:45)
--- NOTE | 2021-10-29 12:36 | NUR ---
Pain Patient is complaining of acid reflux with stomach pain. Patient is saying she is burping a lot and thinks her breakfast made her feel sick. She is asking for medication but patient does not have anything for upset stomach. Dr Arredondo was paged.
[2021-10-29 13:43] VITALS: BP_SYST 152
[2021-10-29] MEDS ORDERED: ONDANSETRON HCL 4 MG/2 ML VIAL IVP PRN (14:15)
--- NOTE | 2021-10-29 16:15 | NUR ---
Patient Rounds Patient is lying in bed comfortably. No signs of any chest pain, sob,or any acute distress noted. Left wrist IV patent infusion well. No s/s any infiltration noted. All safety measures in place, side rails up bed locked in lowest position, call light within reach. All needs met at this time, will continue to monitor.
[2021-10-29] MEDS: SOD FERRIC GLUC COMPLEX/SUC 125 MG in NS 100 ML IV SCH (16:22)
[2021-10-29 17:36] VITALS: BP_SYST 149
--- NOTE | 2021-10-29 18:48 | NUR ---
CLOSING NOTE Patient is lying in bed comfortably. No signs of any chest pain, sob,or any acute distress noted. Left wrist IV patent and SL. No s/s any infiltration noted. All safety measures in place, side rails up bed locked in lowest position, call light within reach. All needs met at this time, will endorse to nightshift nurse.
--- NOTE | 2021-10-29 19:18 | NUR ---
RECEIVED REPORT ON PATIENT FROM EFRAIN GREEN, ASSUMED CARE AND STARTED ASSESSMENT. PATIENT WAS FOUND AT THE DOORWAY OF HER ROOM REQUESTING HER XANAX. SHE STATED THAT SHE WAS TO RECEIVE IT AT 1999. AFTER CONSULTING THE COMPUTER THE MED WAS NOT TO BE GIVEN UNTIL 2099. SHE CONTINUED TO CRY TEARS WITH MUCH GRIMACING AND FACIAL CONTORTIONS UNTIL SHE RECEIVED THE MEDICATION. WILL CONTINUE TO MONITOR AND ASSESS FOR SAFETY AND COMFORT.
[2021-10-29 20:00] VITALS: BP_SYST 156
[2021-10-29] MEDS: QUEtiapine FUMARATE 100 MG TABLET PO SCH (20:39)
[2021-10-29] MEDS: ENOXAPARIN SODIUM 40 MG/0.4 ML SYRINGE SUBCUT SCH (20:41)
[2021-10-30 07:07] LABS: FOLATE (FOLIC ACID) 9.3 ng/mL (>3.0)
[2021-10-30 07:22] LABS: BASOPHILS % (AUTO) 0.6 % (0.0-2.0); EOSINOPHILS # (AUTO) 0.1 K/uL (0.0-0.4); EOSINOPHILS % (AUTO) 1.5 % (0.0-4.0); HEMATOCRIT 25.4 % (36-48); LYMPHOCYTES # (AUTO) 1.4 K/uL (1.0-5.5); LYMPHOCYTES % (AUTO) 30.3 % (20.5-51.5); MEAN CORPUSCULAR VOLUME 74 fL (79.0-98.0); MONOCYTES # (AUTO) 0.3 K/uL (0.0-1.0); MONOCYTES % (AUTO) 7.1 % (1.7-9.3); NEUTROPHILS # (AUTO) 2.9 K/uL (1.8-7.7); NEUTROPHILS % (AUTO) 60.5 % (40.0-70.0); PLATELET COUNT (AUTO) 223 K/uL (130-430); RED BLOOD CELL COUNT(AUTO) 3.45 MIL/uL (4.2-6.2); RED CELL DISTRIBUTION WIDTH 17.3 % (9.0-15.0); WHITE BLOOD COUNT (AUTO) 4.8 K/uL (4.8-10.8)
--- NOTE | 2021-10-30 07:37 | NUR ---
REPORT GIVEN TO BIANCA LYN, AND CARE WAS TURNED OVER TO HIM.
[2021-10-30 08:00] VITALS: BP_SYST 151
[2021-10-30 08:13] LABS: ALANINE AMINOTRANSFERASE 15 U/L (12-78); ALBUMIN 2.8 g/dL (3.4-4.8); ANION GAP 5 (5-15); ASPARTATE AMINOTRANSFERASE 18 U/L (10-37); CHLORIDE 107 mmol/L (98-107); CREATININE 0.81 mg/dL (0.55-1.30); GLUCOSE 102 mg/dL (70-99); POTASSIUM 3.9 mmol/L (3.5-5.1); THYROID STIMULATING HORMONE 1.04 uIu/mL (0.36-3.74); TOTAL BILIRUBIN 0.2 mg/dL (0.0-1.0); UREA NITROGEN, BLOOD 16 mg/dL (8-21)
[2021-10-30] MEDS: ALPRAZolam 0.25 MG TABLET PO SCH ×2 (08:31→21:19)
[2021-10-30] MEDS: ATORVASTATIN 20 MG TABLET PO SCH (08:32)
[2021-10-30] MEDS: ASPIRIN 81 MG TAB.CHEW PO SCH (08:32)
[2021-10-30] MEDS: amLODIPine BESYLATE 5 MG TABLET PO SCH (08:32)
[2021-10-30 12:00] VITALS: BP_SYST 148
[2021-10-30 13:33] LABS: CHOLESTEROL 142 mg/dL (<200); HDL CHOLESTEROL 38 mg/dL (>55); LDL CHOLESTEROL 82 mg/dL (<100); TRIGLYCERIDES 149 mg/dL (30-150)
--- NOTE | 2021-10-30 15:53 | NUR ---
DISCHARGE PLANNING Called & spoke with Dr Arredondo regarding dc plan, possible dc today. States will come eval pt, coming in around 5.
[2021-10-30 16:00] VITALS: BP_SYST 134
[2021-10-30] MEDS: SOD FERRIC GLUC COMPLEX/SUC 125 MG in NS 100 ML IV SCH (17:30)
[2021-10-30] MEDS: ACETAMINOPHEN 325 MG TABLET PO PRN (17:30)
[2021-10-30] MEDS ORDERED: BISACODYL 5 MG TABLET.DR (DULCOLAX) PO ONE (18:15)
[2021-10-30 19:40] VITALS: BP_SYST 136
--- NOTE | 2021-10-30 19:40 | NUR ---
PM ASSESSMENT; -Pt is a/ox4, resting in bed comfortably. Pt denies any chest pain,pain,sob,or any acute distress. IV site patent,no s/s any infiltration noted. Discussed plan of care and to use call light for assistance or if experiencing pain or any acute distress, pt verbalized understanding. Pt is alerted and oriented and able to use call light for assistance. Call light w/in reach, bed alarmed, side rails x3. Cont to monitor pt.
[2021-10-30] MEDS: QUEtiapine FUMARATE 100 MG TABLET PO SCH (21:17)
[2021-10-30] MEDS: ENOXAPARIN SODIUM 40 MG/0.4 ML SYRINGE SUBCUT SCH (21:20)
--- NOTE | 2021-10-30 22:34 | NUR ---
NOTES; -Pt is asleep. NO s/s any acute distress noted. Bed alarmed, side rails x3, call light w/in reach. Cont to monitor pt.
[2021-10-31 00:11] VITALS: BP_SYST 95
--- NOTE | 2021-10-31 00:11 | NUR ---
ROUNDS; -Pt is asleep, easily arousal upon making rounds. Pt denies any chest pain,sob,or any acute distress. Bed alarmed, side rails x3, call light w/in reach. VSS. Instructed to be NPO after midnight for HIDA procedure, pt verbalized understanding. Cont to monitor pt.
[2021-10-31 02:23] VITALS: BP_SYST 133
[2021-10-31] MEDS: ACETAMINOPHEN 325 MG TABLET PO PRN (02:23)
--- NOTE | 2021-10-31 02:23 | NUR ---
ROUNDS; -Pt is c/o neck and back aching pain, gave Tylenol 650mg po for pain mgmt. Will reassess pain level w/in an hour. call light w/in reach. Cont to monitor pt.
--- NOTE | 2021-10-31 03:56 | NUR ---
NOTES; BATHROOM -Assisting pt from bed to bathroom with mini assistance with a walker slow weak gaits noted and returned to bed safely. Pt just voided only, no bowel movt.
--- NOTE | 2021-10-31 03:58 | NUR ---
NOTES; PAGED DR. STARKS REGARDING PT IS C/O NECK AND BACK PAIN SHARP 11/23. WAITING FOR MD TO RETURN CALLBACK.
[2021-10-31] MEDS ORDERED: traMADol HCL HCL 50 MG TABLET (ULTRAM) PO PRN (05:00)
--- NOTE | 2021-10-31 05:07 | NUR ---
PYXSIS MED OVERRIDE PULLED ULTRAM 50 MG TABLET FOR PTS RN, PRABHAKAR. RN VAIBHAV WITNESSED
[2021-10-31] MEDS ORDERED: traMADol HCL HCL 50 MG TABLET (ULTRAM) ONE (05:10)
--- NOTE | 2021-10-31 05:10 | NUR ---
PAIN MGMT; -Pt is c/o neck & back pain sharp 10/10, gave Ultram 50mg po with a sip of water. will reassess pain level w/in an hour. cont to monitor pt.
--- NOTE | 2021-10-31 06:35 | NUR ---
CLOSING NOTES; -Pt is asleep. NO s/s any pain,sob, or any acute distress noted. IV site patent drsg cdi. Call light w/in reach, bed alarmed, side rails x3. Will endorse to next nurse to cont care.
[2021-10-31 08:56] VITALS: BP_SYST 129
[2021-10-31 13:16] VITALS: BP_SYST 133
[2021-10-31] MEDS: ATORVASTATIN 20 MG TABLET PO SCH (16:01)
[2021-10-31] MEDS: amLODIPine BESYLATE 5 MG TABLET PO SCH (16:03)
[2021-10-31] MEDS: ALPRAZolam 0.25 MG TABLET PO SCH ×2 (16:03→21:19)
[2021-10-31] MEDS: ASPIRIN 81 MG TAB.CHEW PO SCH (16:04)
[2021-10-31] MEDS: SOD FERRIC GLUC COMPLEX/SUC 125 MG in NS 100 ML IV SCH (16:07)
[2021-10-31 16:08] VITALS: BP_SYST 136
[2021-10-31 19:30] VITALS: BP_SYST 145
[2021-10-31] MEDS: ENOXAPARIN SODIUM 40 MG/0.4 ML SYRINGE SUBCUT SCH (21:19)
[2021-10-31] MEDS: QUEtiapine FUMARATE 100 MG TABLET PO SCH (21:19)
--- NOTE | 2021-10-31 22:34 | NUR ---
ROUNDS; -Pt is resting in bed comfortably. No s/s any acute distress noted. Call light w/in reach, bed alarmed, side rails x3. Cont to monitor pt.
[2021-11-01 00:27] VITALS: BP_SYST 114
--- NOTE | 2021-11-01 00:28 | NUR ---
ROUNDS; -Pt is asleep, easily awakes upon making rounds. Pt denies chest pain,pain,sob,any acute distress. Call light w/in reach, bed alarmed, side rails x2. Cont to monitor pt.
--- NOTE | 2021-11-01 03:14 | NUR ---
ROUNDS; -Pt is asleep in bed comfortably. No s/s any acute distress noted. Call light w/in reach, bed alarmed, side rails x3. Cont to monitor pt.
--- NOTE | 2021-11-01 06:31 | NUR ---
CLOSING NOTES; -Pt is resting in bed comfortably. NO s/s any acute distress noted. Iv site patent drsg cdi. Call light w/in reach, bed alarmed, side rails x3. Will endorse to next nurse to cont care.
[2021-11-01 07:37] LABS: BASOPHILS % (AUTO) 0.4 % (0.0-2.0); EOSINOPHILS % (AUTO) 0.6 % (0.0-4.0); HEMATOCRIT 26.6 % (36-48); LYMPHOCYTES # (AUTO) 1.5 K/uL (1.0-5.5); LYMPHOCYTES % (AUTO) 19.8 % (20.5-51.5); MEAN CORPUSCULAR VOLUME 75 fL (79.0-98.0); MONOCYTES # (AUTO) 0.6 K/uL (0.0-1.0); NEUTROPHILS # (AUTO) 5.3 K/uL (1.8-7.7); NEUTROPHILS % (AUTO) 71.2 % (40.0-70.0); PLATELET COUNT (AUTO) 255 K/uL (130-430); RED BLOOD CELL COUNT(AUTO) 3.57 MIL/uL (4.2-6.2); RED CELL DISTRIBUTION WIDTH 17.8 % (9.0-15.0); WHITE BLOOD COUNT (AUTO) 7.5 K/uL (4.8-10.8)
[2021-11-01 08:00] VITALS: BP_SYST 139
[2021-11-01] MEDS: amLODIPine BESYLATE 5 MG TABLET PO SCH (09:37)
[2021-11-01] MEDS: ASPIRIN 81 MG TAB.CHEW PO SCH (09:37)
[2021-11-01] MEDS: ATORVASTATIN 20 MG TABLET PO SCH (09:37)
[2021-11-01] MEDS: ALPRAZolam 0.25 MG TABLET PO SCH ×2 (09:38→19:35)
[2021-11-01 11:26] VITALS: BP_SYST 134
[2021-11-01 15:30] VITALS: BP_SYST 125
[2021-11-01] MEDS: ACETAMINOPHEN 325 MG TABLET PO PRN (16:51)
[2021-11-01] MEDS: SOD FERRIC GLUC COMPLEX/SUC 125 MG in NS 100 ML IV SCH (16:52)
[2021-11-01 17:26] VITALS: BP_SYST 125
--- NOTE | 2021-11-01 19:21 | NUR ---
PT HAS AN UNEVENTFUL DAY. SHE IS ON DISCHARGE. WAITING FOR HER DAUGHTER TO PICK HER UP THIS PM. DISCHARGE PAPERS PRINTED. I DISCUSSED THIS PLAN OF CARE WITH ONCOMING NURSE BIANCA ARRIAGA. PT IS ALSO AWARE THAT MD STATED THAT HE SPOKE WITH HER DAUGHTER AND SHE WILL COME PICK HER UP THIS PM.
[2021-11-01] MEDS: QUEtiapine FUMARATE 100 MG TABLET PO SCH (19:35)
[2021-11-01] MEDS ORDERED: FERR324T22 PO (20:17)
[2021-11-01] MEDS ORDERED: FOLI-43 PO (20:18)
[2021-11-01] MEDS ORDERED: PANT20TA2 PO (20:20)
[2021-11-01] MEDS: ENOXAPARIN SODIUM 40 MG/0.4 ML SYRINGE SUBCUT SCH (21:00)
--- NOTE | 2021-11-01 21:00 | NUR ---
pt.d/c home.stable status.v/s assessed values wnl.no c/o pain,nausea.2100p medications administered per pt's requests:traci jang.lovenox held.family present to transport pt.home.i reviewed d/c instructions w family; romanian/turkmen.pt.to f/u w pcp w/in 1 week.ferrous sulfate;po,folic acid;po.protonix;po prescribed reviewed w pt/family.all pt's pertenences accounted for.
== END 2021-11-01 20:52 | disposition home or self-care (01) | DRG 206 ==
LOC: SED 13:23 → SMU 15:13 → STU 23:54
PROVIDERS: ADMIT Family Medicine; ATTEND Family Medicine
DX: M94.0 Chondrocostal junction syndrome [Tietze] (principal); C90.00 Multiple myeloma not having achieved remission; E44.0 Moderate protein-calorie malnutrition; F13.20 Sedative, hypnotic or anxiolytic dependence, uncomplicated; N39.0 Urinary tract infection, site not specified; K21.9 Gastro-esophageal reflux disease without esophagitis; M19.90 Unspecified osteoarthritis, unspecified site; I10 Essential (primary) hypertension; F41.9 Anxiety disorder, unspecified; D50.9 Iron deficiency anemia, unspecified; K80.20 Calculus of gallbladder without cholecystitis without obstruction; F41.0 Panic disorder [episodic paroxysmal anxiety]; Z20.822 Contact with and (suspected) exposure to COVID-19; K44.9 Diaphragmatic hernia without obstruction or gangrene; Z87.891 Personal history of nicotine dependence; Z68.25 Body mass index [BMI] 25.0-25.9, adult
CPT/HCPCS: 36415; 71045; 76700-TC; 78226; 80053; 80061; 82272; 82607; 82728; 82746; 83540; 83550; 83880; 84443; 84484; 85025; 85379; 93005; 93306; 99285; A9537; G0378; J1650; J2405; J2916; Q0162

== ENCOUNTER 2022-01-04 08:38 | Inpatient (IN) | payer OTHER, MEDICAID ==
[~2022-01-04] VITALS: Ht 152.4 cm; Wt 59.4 kg
[~2022-01-04 08:38] MED LIST: ALPR1TAB2 PO; FERR324T22 PO; FOLI-43 PO; PANT20TA2 PO
[2022-01-04 08:48] VITALS: BP_SYST 148
--- NOTE | 2022-01-04 08:53 | NUR ---
BIB TO ROOM, REPORT TO BIANCA LEMONS
--- NOTE | 2022-01-04 09:38 | NUR ---
patient ambulatory to er c/o sob and c/p and h/a place in room 5 for evaluation.
[2022-01-04 09:48] LABS: BASOPHILS % (AUTO) 0.5 % (0.0-2.0); HEMATOCRIT 35.2 % (36-48); HEMOGLOBIN 11.3 g/dL (12.0-16.0); LYMPHOCYTES # (AUTO) 0.8 K/uL (1.0-5.5); LYMPHOCYTES % (AUTO) 8.7 % (20.5-51.5); MEAN CORPUSCULAR HEMOGLOBIN 26 pg (27-31); MEAN CORPUSCULAR HGB CONC 32 % (32-36); MEAN CORPUSCULAR VOLUME 81 fL (79.0-98.0); MONOCYTES # (AUTO) 0.7 K/uL (0.0-1.0); MONOCYTES % (AUTO) 7.7 % (1.7-9.3); NEUTROPHILS # (AUTO) 7.5 K/uL (1.8-7.7); NEUTROPHILS % (AUTO) 83.1 % (40.0-70.0); PLATELET COUNT (AUTO) 307 K/uL (130-430); RED BLOOD CELL COUNT(AUTO) 4.32 MIL/uL (4.2-6.2); RED CELL DISTRIBUTION WIDTH 20.9 % (9.0-15.0)
[2022-01-04 10:02] LABS: ANION GAP 6 (5-15); CALCIUM 8.7 mg/dL (8.4-11.0); CHLORIDE 105 mmol/L (98-107); CREATININE 0.78 mg/dL (0.55-1.30); GLUCOSE 110 mg/dL (70-99); UREA NITROGEN, BLOOD 20 mg/dL (8-21)
[2022-01-04 10:11] LABS: ALANINE AMINOTRANSFERASE 24 U/L (12-78); ALBUMIN 3.6 g/dL (3.4-4.8); ASPARTATE AMINOTRANSFERASE 26 U/L (10-37); TOTAL BILIRUBIN 0.3 mg/dL (0.0-1.0)
[2022-01-04] MEDS ORDERED: ACETAMINOPHEN 500 MG TABLET PO ONE (10:30)
[2022-01-04] MEDS ORDERED: NS 500 ML IV ONE (10:30)
[2022-01-04] MEDS ORDERED: METOCLOPRAMIDE HCL 10 MG/2 ML VIAL IVP ONE (10:30)
--- NOTE | 2022-01-04 10:30 | NUR ---
edp at bedside for initial assessment, with order vanita out.
--- NOTE | 2022-01-04 11:29 | NUR ---
patient medicated remains on vehicle monitor technician, adult ministries director explain to patient the process , patient signed consent.
[2022-01-04] MEDS ORDERED: iohexoL 350 mgI/mL, 100 ML INFUS..BTL IV ONE (11:31)
--- NOTE | 2022-01-04 12:30 | NUR ---
PATIENT CONTINUE TO C/O H/A AND EPIGASTRIC DISCOMFORT. EDP MADE AWARE.
[2022-01-04] MEDS ORDERED: ALPRAZolam 0.25 MG TABLET PO ONE (12:45)
[2022-01-04] MEDS ORDERED: cefTRIAXone 1 GM in D5W 50 ML IV ONE (14:15)
[2022-01-04] MEDS ORDERED: AZITHROMYCIN 500 MG in NS 250 ML IV ONE (14:15)
[2022-01-04] MEDS ORDERED: cefTRIAXone 1 GM VIAL ONE (15:16)
[2022-01-04] MEDS ORDERED: AZITHROMYCIN 500 MG/VIAL (ZITHROMAX) IV ONE (15:17)
[2022-01-04] MEDS ORDERED: ACETAMINOPHEN 325 MG TABLET PO PRN (15:45)
[2022-01-04] MEDS ORDERED: MAGNESIUM SULFATE 50 ML IV PRN (15:45)
[2022-01-04] MEDS ORDERED: NALOXONE HCL 0.4 MG/ML AMP (NARCAN) IVP PRN ×2 (15:45)
[2022-01-04] MEDS ORDERED: MUPIROCIN 2% TOPICAL OINTMENT 22 GM NS PRN (15:45)
[2022-01-04] MEDS ORDERED: IPRATROPIUM/ALBUTEROL SULFATE 3 ML AMPUL.NEB (DUONEB) INH PRN (15:45)
[2022-01-04] MEDS ORDERED: POTASSIUM CHLORIDE 20 MEQ TAB.PRT.SR PO PRN (15:45)
[2022-01-04] MEDS ORDERED: ZOLPIDEM TARTRATE 5 MG TABLET PO PRN (15:45)
[2022-01-04] MEDS ORDERED: DOCUSATE SODIUM 100 MG CAPSULE PO PRN (15:45)
[2022-01-04 17:29] VITALS: BP_SYST 134
[2022-01-04] MEDS ORDERED: PIPERACILLIN/TAZO 3.375/DEX-IS 50 ML IV SCH (18:00)
--- NOTE | 2022-01-04 18:02 | NUR ---
Admit bed requested Patient will be admitted to care of . Admitted to TELE unit. Diagnosis PNEUMONIA Inpatient (Yes or No) YES Observation (Yes or No)NO Orientation concerns or request close to nursing station (Yes or No)NO Covid Status NO On vent or bipap NO Isolation requirements NO Needs a sitter NO From Home (Yes or if No enter name of facility) YES Requires Dialysis (Yes or No) NO Med Rec Completed (Yes of No) YES
--- NOTE | 2022-01-04 18:20 | NUR ---
PATIENT C/O EPIGASTRIC PAIN 09/23 .
[2022-01-04] MEDS: MORPHINE 2 MG/ML INJ. SYRINGE IVP PRN ×3 (18:42→22:36)
--- NOTE | 2022-01-04 18:55 | NUR ---
PATIENT MEDICATED FOR PAIN WITH MORPHINE, TOLERATED WELL, WILL CONTINUE TO MONITOR.
[2022-01-04 19:12] LABS: INR 1.1 (0.8-1.2)
[2022-01-04] MEDS ORDERED: OSELTAMIVIR PHOSPHATE 75 MG CAPSULE PO SCH (21:00)
[2022-01-04] MEDS: PIPERACILLIN/TAZO 3.375/DEX-IS 50 ML IV SCH (22:00)
[2022-01-04] MEDS: HEPARIN SODIUM,PORCINE 5,000 UNITS/ML VIAL SUBCUT SCH (22:32)
[2022-01-04] MEDS: ACETAMINOPHEN 325 MG TABLET PO PRN (22:36)
[2022-01-04] MEDS: LORazepam 2 MG/ML VIAL IVP PRN (22:37)
--- NOTE | 2022-01-04 23:25 | NUR ---
Patient will be admitted to care of Dr. Davis. Admitted to Tele unit. Will go to room 118 A . Belongings list completed. Complete and up to date summary report printed. SBAR report to be given at bedside with opportunity for questions.
[2022-01-05 00:49] VITALS: BP_SYST 109
--- NOTE | 2022-01-05 01:47 | NUR ---
Admission note for a 76 year old female for pneumonia with history of recent covid exposure, multiple myeloma chemo therapy treatment under the care of Doctor Davis.
[2022-01-05] MEDS: PIPERACILLIN/TAZO 3.375/DEX-IS 50 ML IV SCH ×3 (06:00→17:45)
[2022-01-05] MEDS: MORPHINE 2 MG/ML INJ. SYRINGE IVP PRN ×3 (06:14→18:13)
[2022-01-05 08:00] VITALS: BP_SYST 157
[2022-01-05 08:21] LABS: BASOPHILS % (AUTO) 0.5 % (0.0-2.0); EOSINOPHILS # (AUTO) 0.1 K/uL (0.0-0.4); EOSINOPHILS % (AUTO) 1.6 % (0.0-4.0); HEMATOCRIT 35.3 % (36-48); HEMOGLOBIN 11.4 g/dL (12.0-16.0); LYMPHOCYTES # (AUTO) 0.4 K/uL (1.0-5.5); LYMPHOCYTES % (AUTO) 7.1 % (20.5-51.5); MEAN CORPUSCULAR HEMOGLOBIN 27 pg (27-31); MEAN CORPUSCULAR HGB CONC 32 % (32-36); MEAN CORPUSCULAR VOLUME 82 fL (79.0-98.0); MONOCYTES # (AUTO) 0.6 K/uL (0.0-1.0); MONOCYTES % (AUTO) 10.4 % (1.7-9.3); NEUTROPHILS # (AUTO) 4.5 K/uL (1.8-7.7); NEUTROPHILS % (AUTO) 80.4 % (40.0-70.0); PLATELET COUNT (AUTO) 252 K/uL (130-430); RED BLOOD CELL COUNT(AUTO) 4.31 MIL/uL (4.2-6.2); RED CELL DISTRIBUTION WIDTH 21.3 % (9.0-15.0); WHITE BLOOD COUNT (AUTO) 5.6 K/uL (4.8-10.8)
[2022-01-05] MEDS ORDERED: guaiFENesin/DEXTROMETHORPHAN 10 ML UDC PO PRN (08:30)
[2022-01-05 08:52] LABS: ANION GAP 7 (5-15); CALCIUM 7.6 mg/dL (8.4-11.0); CHLORIDE 103 mmol/L (98-107); CREATININE 0.69 mg/dL (0.55-1.30); GLUCOSE 108 mg/dL (70-99); UREA NITROGEN, BLOOD 13 mg/dL (8-21)
[2022-01-05] MEDS: FOLIC ACID 1 MG TABLET PO SCH (09:08)
[2022-01-05] MEDS: HEPARIN SODIUM,PORCINE 5,000 UNITS/ML VIAL SUBCUT SCH ×2 (09:10→21:00)
[2022-01-05 12:00] VITALS: BP_SYST 163
--- NOTE | 2022-01-05 12:00 | NUR ---
A/Ox4,temp elevated to 100.6,c/o severe headache,give tylenol po as prn order for fever and morphine 2 mg IV as prn order for severe pain,give IV antibiotic zosyn due, no adverse reactions noted.continue to monitor pt.
--- NOTE | 2022-01-05 14:37 | NUR ---
PATIENT IS ABLE TO AMBULATE WITH SUPERVISION. PREFERABLY WITH THE FWW. SHE DOES NOT NEED FURTHER PHYSICAL THERAPY. (SHE USES A FWW AT HOME). NURSING SHOULD AMBULATE.
[2022-01-05 16:00] VITALS: BP_SYST 133
[2022-01-05] MEDS: ACETAMINOPHEN 325 MG TABLET PO PRN (17:45)
--- NOTE | 2022-01-05 18:00 | NUR ---
temp decreased to 97,pt c/o headache again,give tylenol but not effective, give morphine 2 mg IV as prn order for severe pain,hourly rounds made safety maintained.
--- NOTE | 2022-01-05 19:30 | NUR ---
OPENING NOTE PT AOX2, UNABLE TO STATE DATE AND DAY OF THE WEEK, REPORTED IT IS AROUND THE YEAR 2019. PT HAS IV IN RIGHT HAND AND F/A, BOTH FLUSHED AND PATENT WITH NO COMPLAINTS OF PAIN OR DISCOMFORT. PT ON ROOM AIR WITH SAT'S AT 92%. PT HAS BRP AND ON TELE WITH MONITOR AT BEDSIDE. ALL SAFETY MEASURES IN PLACE WILL CONTINUE TO MONITOR FOR SAFETY
[2022-01-05 20:00] VITALS: BP_SYST 139
--- NOTE | 2022-01-05 20:15 | NUR ---
ANXIETY MEDICATION PT REPORTS ANXIETY AT 11/23. PT HAS WALKED THE HALLWAY AFTER USING CALL LIGHT AND BEING TOLD HER NURSE WILL BRING HER THE MEDICINE. PT GIVEN ATIVAN ORDERED FOR ANXIETY
[2022-01-05] MEDS: ONDANSETRON HCL 4 MG/2 ML VIAL IVP PRN (20:27)
[2022-01-05] MEDS: LORazepam 2 MG/ML VIAL IVP PRN (20:36)
--- NOTE | 2022-01-05 21:30 | NUR ---
PT EXCESSIVE ALL LIGHT PT ANGRY THAT SHE IS ON ATIVAN EXCEPT XANAX AND TOOK OFF HER OXYGEN ND THREW IR ON THE FLOOR.
--- NOTE | 2022-01-05 22:30 | NUR ---
DAUGHTER/NIECE CALLED FOR UPDATE SPOKE WITH CLARICE SHE IS RECOVERING FROM COVID AND UNABLE TO COME VISIT. GIVEN UPDATE ON PT
--- NOTE | 2022-01-05 22:40 | NUR ---
ADDICTION DAUGHTER/NIECE EXPLAINED PT HAS BEEN ON 4MG OF XANAX DAILY FOR THE LAST 10 YEARS AND IS ADDICTED TO THE MEDICATION. SHE HAD A PSYCH APPT THAT WAS CANCEL R/T PT HAVING COVID. DAUGHTER WAS GOING TO INCREASE HER SEROQUEL WITH HOPES OF TITRATING HER OFF THE XANAX.
[2022-01-06] VITALS: BP_SYST 135
--- NOTE | 2022-01-06 00:15 | NUR ---
C/O ANXIETY PT REQUESTED ANXIETY MEDICATION EXPLAINED IT IS ORDERED EVERY 4 HOURS. PT NOT HAPPY AND WALKED AWAY
--- NOTE | 2022-01-06 01:00 | NUR ---
PT C/O OF PAIN OF HER H/A PT C/O H/A A 11/23. PT GIVEN MORPHINE ORDERED FOR PAIN
--- NOTE | 2022-01-06 01:30 | NUR ---
ANXIETY MEDICATION PT REPORTS ANXIETY AT 11/23. PT STILL HAS BEEN WALKING THE HALLWAY AFTER USING CALL LIGHT AND BEING TOLD HER NURSE WILL BRING HER THE MEDICINE. PT GIVEN ATIVAN ORDERED FOR ANXIETY
[2022-01-06] MEDS: MORPHINE 2 MG/ML INJ. SYRINGE IVP PRN (02:05)
[2022-01-06] MEDS: LORazepam 2 MG/ML VIAL IVP PRN (02:07)
--- NOTE | 2022-01-06 03:30 | NUR ---
C/O PAIN PT AT NURSES STATION C/O PAIN. PT REPORT THE PAIN IS BECAUSE SHE DOES NOT HAVE HER XANAX. EXPLAINED PT MEDICATION IS NOT DU
[2022-01-06 04:00] VITALS: BP_SYST 151
--- NOTE | 2022-01-06 04:15 | NUR ---
PT C/O OF ANXIETY EXPLAINED MEDICATION IS NOT DUE AT THIS TIME
[2022-01-06 07:07] LABS: BASOPHILS % (AUTO) 0.5 % (0.0-2.0); EOSINOPHILS % (AUTO) 0.4 % (0.0-4.0); HEMATOCRIT 37.3 % (36-48); HEMOGLOBIN 12.1 g/dL (12.0-16.0); LYMPHOCYTES # (AUTO) 1.4 K/uL (1.0-5.5); LYMPHOCYTES % (AUTO) 26.2 % (20.5-51.5); MEAN CORPUSCULAR HEMOGLOBIN 27 pg (27-31); MEAN CORPUSCULAR HGB CONC 32 % (32-36); MEAN CORPUSCULAR VOLUME 83 fL (79.0-98.0); MONOCYTES # (AUTO) 0.6 K/uL (0.0-1.0); MONOCYTES % (AUTO) 11.5 % (1.7-9.3); NEUTROPHILS # (AUTO) 3.3 K/uL (1.8-7.7); NEUTROPHILS % (AUTO) 61.4 % (40.0-70.0); PLATELET COUNT (AUTO) 214 K/uL (130-430); RED CELL DISTRIBUTION WIDTH 21.6 % (9.0-15.0); WHITE BLOOD COUNT (AUTO) 5.4 K/uL (4.8-10.8)
[2022-01-06 07:15] LABS: ANION GAP 9 (5-15); CALCIUM 7.5 mg/dL (8.4-11.0); CHLORIDE 101 mmol/L (98-107); CREATININE 0.93 mg/dL (0.55-1.30); GLUCOSE 92 mg/dL (70-99); UREA NITROGEN, BLOOD 16 mg/dL (8-21)
[2022-01-06] MEDS: PIPERACILLIN/TAZO 3.375/DEX-IS 50 ML IV SCH ×5 (07:27→23:50)
[2022-01-06 08:00] VITALS: BP_SYST 137
[2022-01-06] MEDS: ONDANSETRON HCL 4 MG/2 ML VIAL IVP PRN (08:14)
[2022-01-06] MEDS: FOLIC ACID 1 MG TABLET PO SCH (09:00)
[2022-01-06] MEDS: ALPRAZolam 0.25 MG TABLET PO SCH ×2 (09:12→20:46)
[2022-01-06] MEDS: QUEtiapine FUMARATE 25 MG TABLET PO SCH ×2 (09:12→20:46)
[2022-01-06] MEDS: ACETAMINOPHEN 325 MG TABLET PO PRN (09:20)
[2022-01-06] MEDS: HEPARIN SODIUM,PORCINE 5,000 UNITS/ML VIAL SUBCUT SCH ×2 (09:22→20:48)
[2022-01-06 12:00] VITALS: BP_SYST 146
[2022-01-06 16:00] VITALS: BP_SYST 125
[2022-01-06 20:00] VITALS: BP_SYST 134
[2022-01-07] VITALS (8 sets, daily range): BP systolic 118–148
[2022-01-07] MEDS: PIPERACILLIN/TAZO 3.375/DEX-IS 50 ML IV SCH ×3 (05:01→17:12)
--- NOTE | 2022-01-07 05:35 | NUR ---
Received this urdu speaking patient a/ox4. C/o headache, but slept throughout the night. No further issues at this time.
[2022-01-07] MEDS: ACETAMINOPHEN 325 MG TABLET PO PRN ×3 (06:29→17:12)
[2022-01-07 06:55] LABS: BASOPHILS % (AUTO) 0.4 % (0.0-2.0); EOSINOPHILS % (AUTO) 1.6 % (0.0-4.0); HEMATOCRIT 33.7 % (36-48); HEMOGLOBIN 10.9 g/dL (12.0-16.0); LYMPHOCYTES # (AUTO) 0.9 K/uL (1.0-5.5); LYMPHOCYTES % (AUTO) 38.1 % (20.5-51.5); MEAN CORPUSCULAR HEMOGLOBIN 27 pg (27-31); MEAN CORPUSCULAR HGB CONC 32 % (32-36); MEAN CORPUSCULAR VOLUME 82 fL (79.0-98.0); MONOCYTES # (AUTO) 0.4 K/uL (0.0-1.0); MONOCYTES % (AUTO) 15.4 % (1.7-9.3); NEUTROPHILS # (AUTO) 1.1 K/uL (1.8-7.7); NEUTROPHILS % (AUTO) 44.5 % (40.0-70.0); PLATELET COUNT (AUTO) 175 K/uL (130-430); RED BLOOD CELL COUNT(AUTO) 4.09 MIL/uL (4.2-6.2); RED CELL DISTRIBUTION WIDTH 22.2 % (9.0-15.0); WHITE BLOOD COUNT (AUTO) 2.5 K/uL (4.8-10.8)
[2022-01-07 07:01] LABS: ANION GAP 10 (5-15); CALCIUM 7.1 mg/dL (8.4-11.0); CHLORIDE 103 mmol/L (98-107); CREATININE 0.98 mg/dL (0.55-1.30); GLUCOSE 96 mg/dL (70-99); UREA NITROGEN, BLOOD 19 mg/dL (8-21)
--- NOTE | 2022-01-07 07:04 | NUR ---
receive the patient
--- NOTE | 2022-01-07 07:07 | NUR ---
receive the patient from the operation shift supervisor rn in a stable condition with admitting diagnosis of aspiration pneumonia aox4 ambulatory bermudian speaking . no complain of pain at this time . no sign and symptoms of respiratory distress . will continue to monitor
[2022-01-07] MEDS ORDERED: ALBMDI INH (08:51)
[2022-01-07] MEDS ORDERED: AMOX-423 PO (08:51)
[2022-01-07] MEDS: ALPRAZolam 0.25 MG TABLET PO SCH ×2 (09:09→20:45)
[2022-01-07] MEDS: FOLIC ACID 1 MG TABLET PO SCH (09:10)
[2022-01-07] MEDS: QUEtiapine FUMARATE 25 MG TABLET PO SCH ×2 (09:10→20:45)
[2022-01-07] MEDS: HEPARIN SODIUM,PORCINE 5,000 UNITS/ML VIAL SUBCUT SCH ×2 (09:11→20:46)
--- NOTE | 2022-01-07 11:19 | NUR ---
the rn was informed by the for porma cath placement tomorrow for chemotherapy Addendum: 01/07/22 at 1812 by [facility] RN wrong patient
--- NOTE | 2022-01-07 14:30 | NUR ---
called the daughter brady that she has to worm picker her mother because the patient was clinically discharge by md ryder . there is no reason for the patient to stay . the insurance would not be hold accountable for the stay as verbalize by the nurse
--- NOTE | 2022-01-07 18:08 | NUR ---
will endorse to donna freedman rn for continuity of care . npo midnight . for porma cath placement tomorrow for chemotherapy Addendum: 01/07/22 at 1811 by [facility], BIANCA VALENZUELA wrong patient
--- NOTE | 2022-01-07 18:12 | NUR ---
will endorse to night rn for discharge tonight .will be pear picker by the daughter brady at 2030 as per verbal phone call with the am rn Santiago
--- NOTE | 2022-01-07 19:35 | NUR ---
PM ASSESSMENT; -Pt is a/ox4, resting in bed comfortably. Pt denies any chest pain,pain,sob,or any acute distress. No IV access this time, Christ-BIANCA day shift nurse removed prior rpg developer. Waiting for Geraldine arevalo) to warp picker pt around 2029. Discussed discharge home instruction with pt, she verbalized understanding. Pt is on 2L n/c oxy,p9syt=05%. All belonings packed in a bag. Call light w/in reach, bed alarmed, side rails x2. Cont to monitor pt.
--- NOTE | 2022-01-07 21:40 | NUR ---
NOTES; CALLED AND TALKED TO CLARICE DILLARD (NIECE) REGARDING PICKING UP PATIENT. -CLARICE STATED THAT OXY MACHINE IS TOO BIG AND IT IS STATIONARY ONE, CAN'T BRING OUTSIDE B/C IT IS TOO HEAVY TO CARRY. CLARICE STATED," IT'S ONLY 5 MINS AWAY FROM HER HOUSE TO HOSP." INFORMED CLARICE THAT I WILL HAVE PT TO REMOVE OXY AND MONITOR PT FOR 20 MINS W/O OXY USE AND SEE HOW SHE IS DOING AND WHAT IS O2SAT LEVEL AND IF SHE IS NOT IN ANY RESP DISTRESS, I WILL CALL CLARICE TO THEATER USHER PT, SHE VERBALIZED UNDERSTANDING.
--- NOTE | 2022-01-07 22:00 | NUR ---
NOTES; -Pt put oxygen on when asked to remove until I come to monitor o2sat w/o oxy uses. Informed pt now don't use oxygen for 20 mins and will monitor o2sat level at 2220, pt verbalized understanding. cont to monitor pt.
--- NOTE | 2022-01-07 22:26 | NUR ---
NOTES; -Pt is desat 89-90% w/o oxy using. will call md regarding this matter.
--- NOTE | 2022-01-07 22:36 | NUR ---
NOTES; INFORMED Jonah PEREZ REGARDING PT IS T9UJR=41-22% R/A - STATED THAT PT MAY DISCHARGE HOME WITH Y4WJC=81% ON R/A.
--- NOTE | 2022-01-07 22:38 | NUR ---
NOTES; PT IS RESTING IN BED, NO S/S ANY RESP DISTRESS OR SOB, U1PPB=38-25% R/A -WILL CALL ZOILIA TO PICTURE FRAMES INSPECTOR PT NOW.
--- NOTE | 2022-01-07 22:41 | NUR ---
NOTES; CALLED CLARICE (SHIELA) [phone], NO ANSWER THIS TIME. WILL ATTEMPT AGAIN
--- NOTE | 2022-01-07 22:43 | NUR ---
NOTES; CALLED CLARICE OROZCO) [phone], NO ANSWER THIS TIME AND MAILBOX IS FULLED. UNABLE TO LEAVE MESSAGE. WILL TRY AGAIN.
--- NOTE | 2022-01-07 22:52 | NUR ---
NOTES; PT ATTTEMPTED TO CALL CLARICE (SHIELA) [phone], NO ANSWER THIS TIME. INFORMED [facility] NURSE REGARDING THIS MATTER.
--- NOTE | 2022-01-07 23:21 | NUR ---
NOTES; -SINCE BELKIS DIDN'T ANSWER ON CELLPHONE, USING PT'S CELL TEXTED BELKIS TO CONSULTING SOLUTION MANAGER HER AUNT, SHE REPLIED," I'M ON MY WAY." VS 97.2,18, 96, 148/67, I2WRL=37-41% R/A. Pt is still waiting in bed for her niece to peanut picker her.
--- NOTE | 2022-01-07 23:28 | NUR ---
NOTES; CALLED CLARICE AND SHE SAID," I'M JUST LEAVING NOW AND WILL CALL HER AUNT'S CELL NUMBER WHEN ARRIVE IN FRONT OF HOSPITAL. WILL INFORM PT TO WAIT FOR HER NIECE TO CALL.
--- NOTE | 2022-01-07 23:53 | NUR ---
NOTES; [facility] -Pt is not any acute resp distress, non labored breathing noted, VSS, z4eyz=51-42% r/a. No IV access, IV removed prior oncoming my shift. Gave a discharge home instruction and pt took belongings including cell phone with dye beck reel operator. Pt doesn't have shoes left w/o wearing shoes.
== END 2022-01-07 23:55 | disposition home or self-care (01) | DRG 177 ==
LOC: SED 08:38 → STU 14:32 → SMU 01-07 17:08
PROVIDERS: ADMIT General Practice; ATTEND General Practice
DX: J69.0 Pneumonitis due to inhalation of food and vomit (principal); J96.01 Acute respiratory failure with hypoxia; C90.00 Multiple myeloma not having achieved remission; D84.9 Immunodeficiency, unspecified; E44.0 Moderate protein-calorie malnutrition; Z20.822 Contact with and (suspected) exposure to COVID-19; K21.9 Gastro-esophageal reflux disease without esophagitis; Z68.25 Body mass index [BMI] 25.0-25.9, adult
CPT/HCPCS: 36415; 71045; 71275; 76376; 80048; 80053; 83036; 83735; 83880; 84484; 85025; 85379; 85610-TC; 93005; 99285; G0378; J0456; J0696; J1644; J2060; J2270; J2405; J2543; J2765; J7050; Q9967

== ENCOUNTER 2022-05-14 17:37 | Emergency (ER) | payer OTHER, MEDICAID ==
[~2022-05-14] VITALS: Ht 160 cm; Wt 59.0 kg
[~2022-05-14 17:37] MED LIST changes: +ALBMDI INH; +AMOX-423 PO
[2022-05-14 18:06] VITALS: BP_SYST 136
--- NOTE | 2022-05-14 18:39 | NUR ---
PT BIBA AWAKE AND ALERT AOX4 NO SOB OR DISTRESS. PT C/O LOWER BACK PAIN 10/24. PT DENIES TRAUMA. PT HAS HX OF DEPRESSION AND HTN. NEPHEW AT BEDISE. PT DENIES N/V.
--- NOTE | 2022-05-14 18:40 | NUR ---
MD DR YAN AT BEDSIDE
[2022-05-14] MEDS ORDERED: ACETAMINOPHEN 500 MG TABLET PO ONE (18:45)
[2022-05-14] MEDS ORDERED: methocarbamoL 500 MG TABLET PO ONE (18:45)
[2022-05-14] MEDS ORDERED: LIDOCAINE PATCH 5% 1 EA TP ONE (18:45)
[2022-05-14] MEDS ORDERED: MORPHINE 4 MG INJ. 4 MG/ML VIAL IM ONE (18:45)
[2022-05-14] MEDS ORDERED: ONDANSETRON 4 MG ODT TAB PO ONE (18:45)
--- NOTE | 2022-05-14 20:41 | NUR ---
DAUGHTER TELEPHONE NUMBER: [phone]
[2022-05-14] MEDS ORDERED: METH-634 PO (20:52)
[2022-05-14] MEDS ORDERED: ACET-2634 PO (20:52)
[2022-05-14] MEDS ORDERED: OXYC-128 PO (20:52)
[2022-05-14] MEDS ORDERED: LIDO1ADH22 TP (20:54)
--- NOTE | 2022-05-14 20:54 | NUR ---
URINE COLLECTED, SENT TO LAB.
[2022-05-14 21:08] LABS: BILIRUBIN,URINE NEGATIVE (NEGATIVE); CLARITY/URINE CLEAR (CLEAR); COLOR,URINE YELLOW (YELLOW); GLUCOSE,URINE NEGATIVE (NEGATIVE); KETONES,URINE NEGATIVE (NEGATIVE); LEUKOCYTE ESTERASE ,URINE NEGATIVE (NEGATIVE); NITRITE, URINE NEGATIVE (NEGATIVE); PH,URINE 6.5 (5.0-8.0); PROTEIN URINE NEGATIVE (NEGATIVE); UROBILINOGEN,URINE 0.2 (0.2-1.0)
[2022-05-14 21:13] LABS: BLOOD, URINE TRACE (NEGATIVE); RBC,URINE 0-3 /HPF (0-3)
[2022-05-14 21:14] LABS: BACTERIA,URINE None Seen /HPF (None Seen); MUCUS,URINE None Seen /LPF (None Seen); WBC,URINE 0-3 /HPF (0-3)
[2022-05-14 21:30] VITALS: BP_SYST 179
--- NOTE | 2022-05-14 21:33 | NUR ---
VITAL SIGNS DAMARIS AT 1999, LATE ENTRY: 179/88, 95%, 77, 18, OFFICE MACHINE SERVICER APPRENTICE NSR @ 77.
== END 2022-05-15 00:13 | disposition home or self-care (01) ==
LOC: SED 17:37
DX: M62.830 Muscle spasm of back (principal); M54.50 Low back pain, unspecified; K21.9 Gastro-esophageal reflux disease without esophagitis; I10 Essential (primary) hypertension; Z79.899 Other long term (current) drug therapy
CPT/HCPCS: 99284; 96374; 81000; Q0162; J2270

== ENCOUNTER 2023-10-26 11:04 | Emergency (ER) | payer OTHER, MEDICAID ==
[~2023-10-26] VITALS: Ht 157.5 cm; Wt 53.5 kg
[~2023-10-26 11:04] MED LIST changes: +ACET-2634 PO; +LIDO1ADH22 TP; +METH-634 PO; +OXYC-128 PO
[2023-10-26 11:10] VITALS: BP_SYST 143; PULSE 107; RESP 18; TEMP 97.3; O2SAT 95
[2023-10-26 12:18] LABS: BASOPHILS # (AUTO) 0.1 K/uL (0.0-0.2); BASOPHILS % (AUTO) 1.2 % (0.0-2.0); EOSINOPHILS # (AUTO) 0.1 K/uL (0.0-0.4); EOSINOPHILS % (AUTO) 0.8 % (0.0-4.0); HEMATOCRIT 37.1 % (36-48); HEMOGLOBIN 12.6 g/dL (12.0-16.0); LYMPHOCYTES # (AUTO) 1.9 K/uL (1.0-5.5); LYMPHOCYTES % (AUTO) 29.2 % (20.5-51.5); MEAN CORPUSCULAR HEMOGLOBIN 32 pg (27-31); MEAN CORPUSCULAR HGB CONC 34 % (32-36); MEAN CORPUSCULAR VOLUME 95 fL (79.0-98.0); MONOCYTES # (AUTO) 0.4 K/uL (0.0-1.0); MONOCYTES % (AUTO) 6.7 % (1.7-9.3); NEUTROPHILS % (AUTO) 62.1 % (40.0-70.0); PLATELET COUNT (AUTO) 378 K/uL (130-430); RED CELL DISTRIBUTION WIDTH 13.5 % (9.0-15.0); WHITE BLOOD COUNT (AUTO) 6.4 K/uL (4.8-10.8)
[2023-10-26 12:41] LABS: ANION GAP 7 (5-15); CALCIUM 8.9 mg/dL (8.4-11.0); CARBON DIOXIDE 25 mmol/L (23-29); CHLORIDE 103 mmol/L (98-107); GLUCOSE 136 mg/dL (74-106); POTASSIUM 3.8 mmol/L (3.5-5.1); SODIUM SERUM 135 mmol/L (136-145); UREA NITROGEN, BLOOD 11 mg/dL (8-21)
[2023-10-26 12:55] LABS: BILIRUBIN,URINE NEGATIVE (NEGATIVE); BLOOD, URINE NEGATIVE (NEGATIVE); CLARITY/URINE CLEAR (CLEAR); COLOR,URINE YELLOW (YELLOW); GLUCOSE,URINE NEGATIVE (NEGATIVE); KETONES,URINE NEGATIVE (NEGATIVE); LEUKOCYTE ESTERASE ,URINE NEGATIVE (NEGATIVE); NITRITE, URINE NEGATIVE (NEGATIVE); PH,URINE 6.5 (5.0-8.0); PROTEIN URINE NEGATIVE (NEGATIVE); UROBILINOGEN,URINE 0.2 (0.2-1.0)
[2023-10-26] MEDS: IPRATROPIUM/ALBUTEROL SULFATE 3 ML AMPUL.NEB (DUONEB) INH ONE (13:44)
[2023-10-26 13:53] LABS: INFLUENZA TYPE A Negative (NEGATIVE); INFLUENZA TYPE B NEGATIVE (NEGATIVE)
[2023-10-26] MEDS: ACETAMINOPHEN 325 MG TABLET PO ONE (15:50)
[2023-10-26] MEDS ORDERED: AMOX-423 PO (17:11)
[2023-10-26] MEDS ORDERED: ZIT250 PO (17:13)
[2023-10-26] MEDS ORDERED: ALBMDI INH (17:13)
[2023-10-26 18:12] VITALS: BP_SYST 140; PULSE 92; RESP 16; TEMP 97.3; O2SAT 95
== END 2023-10-26 18:12 | disposition home or self-care (01) ==
LOC: SED 11:04
DX: J45.909 Unspecified asthma, uncomplicated (principal); J01.80 Other acute sinusitis; R51.9 Headache, unspecified; Z20.822 Contact with and (suspected) exposure to COVID-19; K21.9 Gastro-esophageal reflux disease without esophagitis; Z79.899 Other long term (current) drug therapy; Z79.2 Long term (current) use of antibiotics
CPT/HCPCS: 36415; 70450-TC; 71045; 80048; 81001; 81003; 83880; 84484; 85025; 93005; 94640; 99285